=== PATIENT | male | born 1945 | race Hispanic/Latino ===

== ENCOUNTER → 2019-09-30 | Outpatient (CLI) | payer OTHER | END | disposition home or self-care (01) | LOC: RAH 10:00 | PROVIDERS: ATTEND Internal Medicine Cardiovascular Disease | DX: J47.9 Bronchiectasis, uncomplicated (principal); N26.1 Atrophy of kidney (terminal); J84.10 Pulmonary fibrosis, unspecified; M47.814 Spondylosis without myelopathy or radiculopathy, thoracic region; I70.0 Atherosclerosis of aorta | CPT/HCPCS: 71250 ==

== ENCOUNTER 2020-09-20 17:58 | Inpatient (IN) | payer MEDICARE, OTHER ==
[~2020-09-20] VITALS: Ht 188 cm; Wt 92.9 kg
[2020-09-20 18:10] LABS: ABG BASE EXCESS -2.8 mmol/L (-2.0-3.0); ABG HCO3 20.8 mmol/L (21.0-28.0); ABG OXYGEN SATURATION 86.7 % (95.0-99.0); ABG PCO2 33 mmHg (35-48)
[2020-09-20 18:38] LABS: EOSINOPHILS % (AUTO) 4.3 % (0.0-8.0); HEMATOCRIT 38.4 % (42-54); LYMPHOCYTES % (AUTO) 10.7 % (21.0-51.0); MEAN CORPUSCULAR HEMOGLOBIN 30.9 pg (27.0-33.0); MEAN CORPUSCULAR HGB CONC 32.6 g/dL (32.0-36.0); MONOCYTES % (AUTO) 11.5 % (3.0-13.0); NEUTROPHILS % (AUTO) 71.3 % (40.0-77.0); PLATELET COUNT (AUTO) 278 K/uL (130-400); RED BLOOD CELL COUNT(AUTO) 4.04 MIL/uL (4.50-6.20); WHITE BLOOD COUNT (AUTO) 11.9 K/uL (4.8-10.8)
[2020-09-20] MEDS ORDERED: ZOSYN 3.375GM+NS 50ML 50 ML IV ONE (18:58)
[2020-09-20] MEDS ORDERED: DEXAMETHASONE SOD PHOSPHATE 10MG/ML 1ML VIAL ONE (18:58)
[2020-09-20] MEDS ORDERED: ACETAMINOPHEN 500 MG TABLET ONE (18:59)
[2020-09-20 19:00] LABS: INR 1.03 (0.85-1.15); PROTHROMBIN TIME 11.2 SEC (9.6-11.6)
[2020-09-20 19:02] LABS: PARTIAL THROMBOPLASTIN TIME 26.3 SEC (26.3-35.5)
[2020-09-21] MEDS ORDERED: ZOSYN 3.375GM+NS 50ML 50 ML IV SCH (02:00)
[2020-09-21] MEDS: INSULIN HUMULIN R 100 UNIT/ML 3ML SQ SCH ×2 (07:30→11:30)
[2020-09-21] MEDS ORDERED: ASCORBIC ACID 500 MG TAB ONE (07:31)
[2020-09-21] MEDS ORDERED: ACETYLCYSTEINE 600 MG CAPSULE ONE ×2 (07:31→20:56)
[2020-09-21] MEDS ORDERED: HYDRALAZINE HCL 10 MG TABLET ONE ×3 (07:31→20:56)
[2020-09-21] MEDS ORDERED: ZINC SULFATE 220 CAPSULE ONE (07:31)
[2020-09-21] MEDS ORDERED: ENOXAPARIN SODIUM 40 MG/0.4 ML SYRINGE SQ ONE (07:32)
[2020-09-21] MEDS ORDERED: ZOSYN 3.375GM+NS 50ML 50 ML IV ONE (07:32)
[2020-09-21] MEDS ORDERED: INSULIN HUMULIN R 100 UNIT/ML 3ML ONE ×2 (07:33→20:56)
[2020-09-21] MEDS: ENOXAPARIN SODIUM 40 MG/0.4 ML SYRINGE SQ SCH (09:00)
[2020-09-21] MEDS: ZINC SULFATE 220 CAPSULE PO SCH (09:00)
[2020-09-21] MEDS: ASCORBIC ACID 500 MG TAB PO SCH (09:00)
[2020-09-21] MEDS: AZITHROMYCIN 500MG+NS 250ML 250 ML IV SCH (09:30)
[2020-09-21] MEDS ORDERED: AZITHROMYCIN 500MG+NS 250ML 250 ML IV ONE (11:14)
[2020-09-21] MEDS ORDERED: DEXTROSE 50%-WATER 50 ML DISP.SYRIN IV PRN (13:30)
[2020-09-21] MEDS ORDERED: LIDOCAINE HCL-MPF 1% 2ML VIAL IV PRN ×2 (13:30)
[2020-09-21] MEDS ORDERED: GLUCAGON 1MG KIT 1 MG ML IM PRN (13:30)
[2020-09-21] MEDS ORDERED: POTASSIUM CHLORIDE 20MEQ/100ML 100 ML IV PRN ×2 (13:30)
[2020-09-21] MEDS ORDERED: MAGNESIUM 2GM PREMIX 50ML 50 ML IV PRN (13:30)
[2020-09-21] MEDS ORDERED: KCL 20 MEQ ERTAB PO PRN (13:30)
[2020-09-21] MEDS ORDERED: POTASSIUM CHLORIDE 10% ELIXIR 20 MEQ/15 ML UDCUP PO PRN (13:30)
[2020-09-21] MEDS ORDERED: DEXAMETHASONE SOD PHOSPHATE 10MG/ML 1ML VIAL ONE (17:09)
[2020-09-21] MEDS ORDERED: DEXAMETHASONE SOD PHOSPHATE 4 MG/ML 1ML VIAL IVP SCH (18:00)
[2020-09-21] MEDS: HYDRALAZINE HCL 10 MG TABLET PO SCH (21:00)
[2020-09-21] MEDS: ACETYLCYSTEINE 600 MG CAPSULE PO SCH (21:00)
[2020-09-21 22:00] VITALS: BP 136/78
[2020-09-22] VITALS: BP 126/73
[2020-09-22 04:00] VITALS: BP 128/75
[2020-09-22] MEDS ORDERED: FLUO20CA30 PO (05:27)
[2020-09-22] MEDS ORDERED: GABA100C PO (05:28)
[2020-09-22] MEDS ORDERED: METF-446 PO (05:30)
[2020-09-22] MEDS ORDERED: CYCL-309 PO (05:31)
[2020-09-22] MEDS ORDERED: ROSU20TA31 PO (05:33)
[2020-09-22] MEDS ORDERED: ASPI-1197 PO (05:34)
[2020-09-22 08:00] VITALS: BP 127/73
[2020-09-22] MEDS: ACETYLCYSTEINE 600 MG CAPSULE PO SCH ×2 (09:40→20:25)
[2020-09-22] MEDS: CEFTRIAXONE 1G VIAL IV SCH (09:40)
[2020-09-22] MEDS: PANTOPRAZOLE 40 MG TAB DR PO SCH (09:40)
[2020-09-22] MEDS: ZINC SULFATE 220 CAPSULE PO SCH (09:40)
[2020-09-22] MEDS: HYDRALAZINE HCL 10 MG TABLET PO SCH ×3 (09:40→20:27)
[2020-09-22] MEDS: AZITHROMYCIN 500MG+NS 250ML 250 ML IV SCH (09:41)
[2020-09-22] MEDS: ASCORBIC ACID 500 MG TAB PO SCH (09:41)
[2020-09-22] MEDS: ENOXAPARIN SODIUM 40 MG/0.4 ML SYRINGE SQ SCH (09:44)
[2020-09-22 09:56] LABS: HEMATOCRIT 37.2 % (42-54); MEAN CORPUSCULAR HEMOGLOBIN 31.5 pg (27.0-33.0); MEAN CORPUSCULAR HGB CONC 33.1 g/dL (32.0-36.0); MEAN CORPUSCULAR VOLUME 95.4 fL (79-99); RED BLOOD CELL COUNT(AUTO) 3.9 MIL/uL (4.50-6.20); RED CELL DISTRIBUTION WIDTH 13.8 % (11.0-15.5); WHITE BLOOD COUNT (AUTO) 11.2 K/uL (4.8-10.8)
[2020-09-22 10:11] LABS: CREATININE 1.5 mg/dL (0.5-1.5); POTASSIUM 4.4 mmol/L (3.5-5.1)
[2020-09-22] MEDS ORDERED: LACTULOSE 20 GM/30 ML UDCUP PO SCH (14:15)
[2020-09-22 14:41] VITALS: BP 147/73
[2020-09-22 16:00] VITALS: BP 116/65
[2020-09-22 19:00] VITALS: BP 131/72
[2020-09-22] MEDS: DEXAMETHASONE SOD PHOSPHATE 4 MG/ML 1ML VIAL IVP SCH (20:26)
[2020-09-22] MEDS: INSULIN HUMULIN R 100 UNIT/ML 3ML SQ SCH (20:53)
[2020-09-23] VITALS: BP 122/77
[2020-09-23 03:30] LABS: ABG BASE EXCESS -1.2 mmol/L (-2.0-3.0); ABG HCO3 24.1 mmol/L (21.0-28.0); ABG OXYGEN SATURATION 97.9 % (95.0-99.0); ABG PCO2 43 mmHg (35-48)
[2020-09-23 04:00] VITALS: BP 111/74
[2020-09-23 06:14] LABS: HEMATOCRIT 36.9 % (42-54); MEAN CORPUSCULAR HEMOGLOBIN 30.8 pg (27.0-33.0); MEAN CORPUSCULAR HGB CONC 32.5 g/dL (32.0-36.0); MEAN CORPUSCULAR VOLUME 94.9 fL (79-99); RED BLOOD CELL COUNT(AUTO) 3.89 MIL/uL (4.50-6.20); RED CELL DISTRIBUTION WIDTH 13.9 % (11.0-15.5); WHITE BLOOD COUNT (AUTO) 9.5 K/uL (4.8-10.8)
[2020-09-23 06:23] LABS: CREATININE 1.5 mg/dL (0.5-1.5); POTASSIUM 4.6 mmol/L (3.5-5.1)
[2020-09-23] MEDS: INSULIN HUMULIN R 100 UNIT/ML 3ML SQ SCH ×4 (06:32→20:29)
[2020-09-23 08:00] VITALS: BP 119/85
[2020-09-23] MEDS: CEFTRIAXONE 1G VIAL IV SCH (08:39)
[2020-09-23] MEDS: PANTOPRAZOLE 40 MG TAB DR PO SCH (08:40)
[2020-09-23] MEDS: ASCORBIC ACID 500 MG TAB PO SCH (08:40)
[2020-09-23] MEDS: HYDRALAZINE HCL 10 MG TABLET PO SCH ×3 (08:40→20:23)
[2020-09-23] MEDS: ACETYLCYSTEINE 600 MG CAPSULE PO SCH ×2 (08:40→20:23)
[2020-09-23] MEDS: DEXAMETHASONE SOD PHOSPHATE 4 MG/ML 1ML VIAL IVP SCH ×2 (08:40→20:24)
[2020-09-23] MEDS: AZITHROMYCIN 500MG+NS 250ML 250 ML IV SCH (08:41)
[2020-09-23 12:00] VITALS: BP 123/73
[2020-09-23] MEDS: ZINC SULFATE 220 CAPSULE PO SCH (13:12)
[2020-09-23] MEDS: ENOXAPARIN SODIUM 40 MG/0.4 ML SYRINGE SQ SCH (13:14)
[2020-09-23 17:15] VITALS: BP 133/80
[2020-09-23 19:00] VITALS: BP 111/68
[2020-09-24] VITALS: BP 153/54
[2020-09-24 04:00] VITALS: BP 118/76
[2020-09-24 04:19] LABS: HEMATOCRIT 37.3 % (42-54); MEAN CORPUSCULAR HGB CONC 32.4 g/dL (32.0-36.0); MEAN CORPUSCULAR VOLUME 95.6 fL (79-99); RED BLOOD CELL COUNT(AUTO) 3.9 MIL/uL (4.50-6.20); RED CELL DISTRIBUTION WIDTH 13.6 % (11.0-15.5); WHITE BLOOD COUNT (AUTO) 9.8 K/uL (4.8-10.8)
[2020-09-24 04:29] LABS: CREATININE 1.4 mg/dL (0.5-1.5); POTASSIUM 4.5 mmol/L (3.5-5.1)
[2020-09-24] MEDS: INSULIN HUMULIN R 100 UNIT/ML 3ML SQ SCH ×4 (06:32→20:41)
[2020-09-24 08:19] VITALS: BP 118/79
[2020-09-24] MEDS: ASCORBIC ACID 500 MG TAB PO SCH (08:57)
[2020-09-24] MEDS: HYDRALAZINE HCL 10 MG TABLET PO SCH ×3 (08:57→20:42)
[2020-09-24] MEDS: PANTOPRAZOLE 40 MG TAB DR PO SCH (08:57)
[2020-09-24] MEDS: ENOXAPARIN SODIUM 40 MG/0.4 ML SYRINGE SQ SCH (08:58)
[2020-09-24] MEDS: ZINC SULFATE 220 CAPSULE PO SCH (08:58)
[2020-09-24] MEDS: ACETYLCYSTEINE 600 MG CAPSULE PO SCH ×2 (08:58→20:42)
[2020-09-24] MEDS: CEFTRIAXONE 1G VIAL IV SCH (08:58)
[2020-09-24] MEDS: DEXAMETHASONE SOD PHOSPHATE 4 MG/ML 1ML VIAL IVP SCH ×2 (08:59→20:42)
[2020-09-24] MEDS: AZITHROMYCIN 500MG+NS 250ML 250 ML IV SCH (08:59)
[2020-09-24 12:08] VITALS: BP 132/89
[2020-09-24 17:15] VITALS: BP 158/88
[2020-09-24 20:00] VITALS: BP 118/79
[2020-09-25] VITALS: BP 112/71
[2020-09-25 04:00] VITALS: BP 116/78
[2020-09-25 06:37] LABS: CREATININE 1.4 mg/dL (0.5-1.5); POTASSIUM 4.7 mmol/L (3.5-5.1)
[2020-09-25] MEDS: INSULIN HUMULIN R 100 UNIT/ML 3ML SQ SCH ×4 (06:51→20:45)
[2020-09-25 07:30] VITALS: BP 153/71
[2020-09-25] MEDS: AZITHROMYCIN 500MG+NS 250ML 250 ML IV SCH (09:49)
[2020-09-25] MEDS: ENOXAPARIN SODIUM 40 MG/0.4 ML SYRINGE SQ SCH (09:50)
[2020-09-25] MEDS: DEXAMETHASONE SOD PHOSPHATE 4 MG/ML 1ML VIAL IVP SCH ×2 (09:50→20:36)
[2020-09-25] MEDS: ACETYLCYSTEINE 600 MG CAPSULE PO SCH ×2 (09:51→20:36)
[2020-09-25] MEDS: CEFTRIAXONE 1G VIAL IV SCH (09:51)
[2020-09-25] MEDS: HYDRALAZINE HCL 10 MG TABLET PO SCH ×3 (09:51→20:38)
[2020-09-25] MEDS: ZINC SULFATE 220 CAPSULE PO SCH (09:51)
[2020-09-25] MEDS: PANTOPRAZOLE 40 MG TAB DR PO SCH (09:51)
[2020-09-25] MEDS: ASCORBIC ACID 500 MG TAB PO SCH (09:51)
[2020-09-25 11:00] VITALS: BP 123/72
[2020-09-25 16:00] VITALS: BP 119/72
[2020-09-25 20:29] VITALS: BP 115/70
[2020-09-26 00:07] VITALS: BP 113/71
== END 2020-09-26 01:34 | DRG 177 ==
LOC: EDH 17:58 → EDHIP 20:16 → OBSVTOIN 20:16 → 4AH 09-21 21:33
PROVIDERS: ADMIT Internal Medicine; ATTEND Internal Medicine
PROC: 5A0935A Assistance with Respiratory Ventilation, Less than 24 Consecutive Hours, High Flow/Velocity Cannula (ICD-10-PCS; principal; 2020-09-22)
PROC: 5A0935A Assistance with Respiratory Ventilation, Less than 24 Consecutive Hours, High Flow/Velocity Cannula (ICD-10-PCS; 2020-09-25)
DX: J15.6 Pneumonia due to other Gram-negative bacteria (principal); J96.01 Acute respiratory failure with hypoxia; E11.9 Type 2 diabetes mellitus without complications; Z20.822 Contact with and (suspected) exposure to COVID-19; I10 Essential (primary) hypertension; I25.10 Atherosclerotic heart disease of native coronary artery without angina pectoris; E66.9 Obesity, unspecified; Z79.82 Long term (current) use of aspirin; Z79.84 Long term (current) use of oral hypoglycemic drugs; Z79.899 Other long term (current) drug therapy; Z95.1 Presence of aortocoronary bypass graft; Z87.891 Personal history of nicotine dependence; Z68.26 Body mass index [BMI] 26.0-26.9, adult; Z83.3 Family history of diabetes mellitus
CPT/HCPCS: 36415; 36600; 71045; 80048; 82803; 82948; 83605; 84145; 84484; 85025; 85027; 85378; 85610; 85730; 86140; 87040; 87426; 93005; 94760; G0378; J0456; J0696; J1100; J1650; J1815; J2543; U0003

== ENCOUNTER → 2022-10-19 | Outpatient (CLI) | payer MEDICARE ==
[~2022-10-19] MED LIST: ASPI-1197 PO; CYCL-309 PO; FLUO20CA30 PO; GABA100C PO; METF-446 PO; ROSU20TA31 PO
== END | disposition home or self-care (01) ==
LOC: SHCH 07:49
PROVIDERS: ATTEND Internal Medicine Cardiovascular Disease
DX: I37.1 Nonrheumatic pulmonary valve insufficiency (principal); I25.810 Atherosclerosis of coronary artery bypass graft(s) without angina pectoris
CPT/HCPCS: 93306

== ENCOUNTER → 2023-01-10 | Outpatient (CLI) | payer MEDICARE | END | disposition home or self-care (01) | LOC: RAH 12:25 | PROVIDERS: ATTEND Internal Medicine | DX: J84.10 Pulmonary fibrosis, unspecified (principal); J47.9 Bronchiectasis, uncomplicated; K44.9 Diaphragmatic hernia without obstruction or gangrene | CPT/HCPCS: 71250 ==